=== PATIENT | female | born 1940 | race Caucasian/White ===

== ENCOUNTER → 2016-11-25 | Outpatient (CLI) | payer MEDICARE, BC ==
[2014-09-17 20:54] VITALS: BP 158/93
[~2016-11-25] MED LIST: AMLO5TAB2 PO; AZEL137S3 NS; BUME1TAB PO; CELE200C PO; FERR-26 PO; Hydrocodone/Acetaminophen PO; IOHEXOL 240 MG/ML 50ML VIAL. PO ONE; IOHEXOL 300 MG/ML 75 ML VIAL IV ONE; OLME1TAB3 PO; PRAV20TA2 PO; WARF5TAB PO; Warfarin Sodium MC
--- NOTE | 2016-11-25 15:01 | RAD ---
Indication pelvic pain for one month. Axial images of the abdomen and pelvis were obtained. Both oral and IV contrast were administered. Approximately 75 cc of Omnipaque 300 was administered intravenously. Note is made of a previous examination September 24, 2014. The lung bases appear clear. The liver and spleen appear unremarkable. Clips are noted in the gallbladder fossa. No pancreatic abnormality is seen. The adrenal glands appear normal. Known, 2 , small masses associated with the right kidney appear unchanged relative to the referenced examination over 2 years ago. No acute renal finding is seen. An acute finding in the abdomen is not seen. Occasional diverticula are seen associated with the large bowel. Active inflammation is not seen. An acute finding in the pelvis is not apparent. IMPRESSION: No acute finding seen in the abdomen or pelvis. 2 small masses associated with the right kidney appear stable relative to the study 2 years ago PQRS Compliance Statement: One or more of the following individualized dose reduction techniques were utilized for this examination: 1. Automated exposure control 2. Adjustment of the mA and/or kV according to patient size 3. Use of iterative reconstruction technique
== END | disposition home or self-care (01) ==
LOC: CT 15:34
PROVIDERS: ATTEND Obstetrics & Gynecology
DX: R10.2 Pelvic and perineal pain (principal); N28.1 Cyst of kidney, acquired
CPT/HCPCS: 74177; Q9966; Q9967

== ENCOUNTER → 2017-08-24 | Outpatient (CLI) | payer MEDICARE, BC ==
[2014-09-17 20:54] VITALS: BP 158/93
[~2017-08-24] MED LIST changes: -IOHEXOL 240 MG/ML 50ML VIAL. PO ONE; -IOHEXOL 300 MG/ML 75 ML VIAL IV ONE; +OLME1TAB23 PO; -OLME1TAB3 PO; +WARF-78 PO; -WARF5TAB PO
--- NOTE | 2017-08-24 15:13 | RAD ---
DATE: 08/24/2017 EXAM: DIGITAL SCREEN BILAT W/CAD HISTORY: Screening study. COMPARISON: 08/04/2016 This study was interpreted with the benefit of Computerized Aided Detection (CAD). The breast parenchyma is heterogeneously dense, which could reduce sensitivity of mammography. Breast parenchyma level C. FINDINGS: MLO and CC digital mammograms of both breasts were obtained. Additional CC digital mammograms of both breasts were obtained. Comparison study is dated 08/04/2016. The breast parenchyma is heterogeneously dense which can obscure a lesion on mammography (breast density code C). Well-defined nodular densities are seen within the posterior aspect of the lateral breasts, unchanged. No spiculated mass is seen. No malignant appearing calcification or area of architectural distortion is noted. IMPRESSION: BI-RADS Category 2, benign findings. There is no mammographic evidence of malignancy. Routine yearly screening mammography is recommended for follow-up. BI-RADS CATEGORY: 2 BENIGN FINDING(S) RECOMMENDED FOLLOW-UP: 12M 12 MONTH FOLLOW-UP PQRS compliance statement: Patient information was entered into a reminder system with a target due date 08/24/2018 for the next mammogram. Mammography is a sensitive method for finding small breast cancers, but it does not detect them all and is not a substitute for careful clinical examination. A negative mammogram does not negate a clinically suspicious finding and should not result in delay in biopsying a clinically suspicious abnormality. "Our facility is accredited by the [employer] Mammography [employer]."
== END | disposition home or self-care (01) ==
LOC: MAMMO 14:20
PROVIDERS: ATTEND Internal Medicine
DX: Z12.31 Encounter for screening mammogram for malignant neoplasm of breast (principal)
CPT/HCPCS: G0202; 77067

== ENCOUNTER → 2018-08-25 | Outpatient (CLI) | payer MEDICARE ==
[2014-09-17 20:54] VITALS: BP 158/93
[~2018-08-25] MED LIST changes: -AMLO5TAB2 PO; +AMLO5TAB7 PO; -FERR-26 PO; +FERR325T14 PO
--- NOTE | 2018-08-28 09:01 | RAD ---
DATE: 08/25/2018 EXAM: MAMMO OMEGA SCREENING BILATERAL HISTORY: Routine screening COMPARISON: 08/24/2017 This study was interpreted with the benefit of Computerized Aided Detection (CAD). Breast Density: HETERO The breast parenchyma is heterogenously dense, which could reduce sensitivity of mammography. Breast parenchyma level C. FINDINGS: 2-D and 3-D tomosynthesis imaging was performed in CC and MLO projections. No new or enlarging breast densities are seen. Benign type calcifications are present. No suspicious microcalcifications have developed. IMPRESSION: Stable mammograms without evidence of malignancy. BI-RADS CATEGORY: 2 BENIGN FINDING(S) RECOMMENDED FOLLOW-UP: 12M 12 MONTH FOLLOW-UP PQRS compliance statement: Patient information was entered into a reminder system with a target due date for the next mammogram. Mammography is a sensitive method for finding small breast cancers, but it does not detect them all and is not a substitute for careful clinical examination. A negative mammogram does not negate a clinically suspicious finding and should not result in delay in biopsying a clinically suspicious abnormality. "Our facility is accredited by the [employer] Mammography [employer]."
== END | disposition home or self-care (01) ==
LOC: MAMMO 13:40
DX: Z12.31 Encounter for screening mammogram for malignant neoplasm of breast (principal)
CPT/HCPCS: 77063; 77067

== ENCOUNTER → 2019-08-27 | Outpatient (CLI) | payer MEDICARE, BC ==
[2014-09-17 20:54] VITALS: BP 158/93
[~2019-08-27] MED LIST changes: +AMLO5TAB10 PO; -AMLO5TAB7 PO; -BUME1TAB PO; +BUME1TAB3 PO
--- NOTE | 2019-08-28 15:46 | RAD ---
DATE: 08/27/2019. EXAM: MAMMO OMEGA SCREENING BILATERAL. HISTORY: Routine mammographic screening. COMPARISON: 08/25/2018. This study was interpreted with the benefit of Computerized Aided Detection (CAD). FINDINGS: Breast Density: HETERO The breast parenchyma is heterogenously dense, which could reduce sensitivity of mammography. Breast parenchyma level C.. There are no suspicious masses, microcalcifications or architectural distortion. Scattered and coarse calcifications are benign. The parenchymal pattern is stable. BI-RADS CATEGORY: 2 BENIGN FINDING(S). RECOMMENDED FOLLOW-UP: 12M 12 MONTH FOLLOW-UP. PQRS compliance statement: Patient information was entered into a reminder system with a target due date 08/27/2020 for the next mammogram. Mammography is a sensitive method for finding small breast cancers, but it does not detect them all and is not a substitute for careful clinical examination. A negative mammogram does not negate a clinically suspicious finding and should not result in delay in biopsying a clinically suspicious abnormality. "Our facility is accredited by the [employer] Mammography [employer]."
== END | disposition home or self-care (01) ==
LOC: MAMMO 13:33
PROVIDERS: ATTEND Family Medicine
DX: Z12.31 Encounter for screening mammogram for malignant neoplasm of breast (principal); N64.89 Other specified disorders of breast
CPT/HCPCS: 77063; 77067

== ENCOUNTER → 2020-12-15 | Outpatient (CLI) | payer MEDICARE, BC ==
[2014-09-17 20:54] VITALS: BP 158/93
[~2020-12-15] MED LIST changes: +AMLO-186 PO; -AMLO5TAB10 PO; -WARF-78 PO; +WARF5TAB2 PO
--- NOTE | 2020-12-18 16:09 | RAD ---
DATE: 12/15/2020 EXAM: MAMMO OMEGA SCREENING BILATERAL HISTORY: Screening COMPARISON: 08/27/2019, 08/25/2018, 08/24/2017, 08/04/2016, 04/09/2015 This study was interpreted with the benefit of Computerized Aided Detection (CAD). Breast Density: HETERO The breast parenchyma is heterogenously dense, which could reduce sensitivity of mammography. Breast parenchyma level C. FINDINGS: No mass, suspicious calcification, or architectural distortion in either breast. IMPRESSION: No evidence of malignancy. BI-RADS CATEGORY: 1 NEGATIVE RECOMMENDED FOLLOW-UP: 12M 12 MONTH FOLLOW-UP PQRS compliance statement: Patient information was entered into a reminder system with a target due date for the next mammogram. Mammography is a sensitive method for finding small breast cancers, but it does not detect them all and is not a substitute for careful clinical examination. A negative mammogram does not negate a clinically suspicious finding and should not result in delay in biopsying a clinically suspicious abnormality. "Our facility is accredited by the [employer] Mammography Program."
== END ==
LOC: MAMMO 12:02
PROVIDERS: ATTEND Family Medicine
DX: Z12.31 Encounter for screening mammogram for malignant neoplasm of breast (principal)
CPT/HCPCS: 77063; 77067

== ENCOUNTER → 2021-07-13 | Outpatient (CLI) | payer MEDICARE, BC ==
[2014-09-17 20:54] VITALS: BP 158/93
--- NOTE | 2021-07-13 16:44 | KCIC ---
INDICATION: Screening for osteopenia/osteoporosis. Reason: POST MENAPAUSAL / Spl. Instructions: / H istory: COMPARISON: None. TECHNIQUE: Bone densitometry was performed through the lumbar spine and proximal femur. IMPRESSION: Lumbar Spine: BMD: 1.05 T-Score: 0 Range: Normal Proximal Femur: BMD: 0.74 T-Score: -1.7 Range: Osteopenic World Health Organization Criteria for Bone Density: T-Score: > -1.0: Normal Range < -1.0 to -2.5: Osteopenic Range < -2.5: Osteoporotic Range Electronically signed by: Lasha Johnson MD (07/13/2021 4:42 PM) [id number]
== END ==
LOC: KCIC DEXA 12:10
PROVIDERS: ATTEND Family Medicine
DX: M85.88 Other specified disorders of bone density and structure, other site (principal); Z78.0 Asymptomatic menopausal state
CPT/HCPCS: 77080